=== PATIENT | female | born 1965 | race Hispanic/Latino ===

== ENCOUNTER → 2021-09-05 00:29 | Outpatient (CLI) | payer BC, SELFPAY ==
[2021-09-07 20:01] LABS: SARS-CoV-2 RNA PCR Negative
== END ==
PROVIDERS: PCP Physician Assistant; Visit Provider Physician Assistant
DX: Z20.822 Contact with and (suspected) exposure to COVID-19 (principal)
CPT/HCPCS: C9803; U0003; U0005

== ENCOUNTER 2024-02-14 12:30 | Outpatient (RCR) | payer OTHER, SELFPAY ==
--- NOTE | 2024-01-13 11:42 | OPREHPOC ---
Outpatient Therapy Plan of Care This is a Multidisciplinary Plan of Care that may contain components documented by all disciplines (PT, OT, and ST.) PT Problem 1 PT Problem #1 Knowledge Deficit PT Goal 1 Goal 1. Patient will perform independent HEP Target Visit 3 PT Problem 2 PT Problem #2 Pain PT Goal 1 Goal 1. Pt will report pain no higher than 4/10 with ADL's 2. No pain with pelvic exam Target Visit 6 PT Problem 3 PT Problem #3 Impaired Functional ADLs PT Goal 1 Goal 1. Patient will report no limitation with walking activities or sleeping Target Visit 6 PT Problem 4 PT Problem #4 Impaired Strength PT Goal 1 Goal 1. Improve hip strength to 4+/5 in all planes 2. Improve pelvic floor strength to 3/5 Target Visit 6
--- NOTE | 2024-01-13 11:42 | PTOPEVAL1 ---
Assessment and note entered by Xochilt Norwood DPT Evaluation Information Assessment Status Evaluation Subjective Information Pt reports she has had a lot of issues with BM and has to splint at times, worsening over the last 5 years. Some abdominal/pelvic pain that wraps around and sometimes affects her ability to walk and difficulty sleeping at times. Voids 3-4 times a day and 3-4 times at night. Incontinence with cough or sneeze, may occur every day but may also have times where it does not. Can hold urge variable amounts of time. Denies pain with urination. BM 3-4 times a week and reports a sense of constipation. Has noticed that fiber intake does help. Highest pain 10/10 and lowest 4/10. Pt is menopausal. Pt has had 4 vaginal deliveries and 1 . Previous tubal ligation and hysterectomy and surgery for kidney stones. Patient goal: get exercises and feel better Return to MD is not scheduled. Reported Pain Level Pain Score 4: Self Report Assessment PT Clinical Summary The patient is presenting to skilled therapy with a history of worsening pelvic/abdominal pain and reports of constipation. She presents with increased pelvic floor muscle tone and pain on palpation, decreased strength and endurance which are contributing to her pain and difficulty with walking activities. She will highly benefit from therapy to address these impairments in order to reduce pain and improve function. Plan of Care Interventions Electrical Stimulation,Gait Training,Hot Pack/Cold Pack,Manual Therapy,Neuro Re-education,Patient/ Caregiver Education,Therapeutic Activities, Therapeutic Exercise PT Services Indicated Yes Treatment Frequency and 1 time a week for 6 visits Duration These treatments will address the objective and functional deficits as defined above. The patient will be advanced safely and appropriately in order for the patient to progress towards his/her prior level of function. Additional exercises will be introduced and as well as a comprehensive home exercise program upon discharge, if needed, ?to ensure carryover of functional gains achieved in the clinic. This treatment plan has been reviewed and agreement upon by the patient.
--- NOTE | 2024-02-14 13:05 | OPREHPOC ---
Outpatient Therapy Plan of Care This is a Multidisciplinary Plan of Care that may contain components documented by all disciplines (PT, OT, and ST.) PT Problem 1 PT Problem #1 Knowledge Deficit PT Goal 1 Goal 1. Patient will perform independent HEP Target Visit 3 Progress Met PT Problem 2 PT Problem #2 Pain PT Goal 1 Goal 1. Pt will report pain no higher than 4/10 with ADL's 2. No pain with pelvic exam Target Visit 9 Progress Partially Met PT Problem 3 PT Problem #3 Impaired Functional ADLs PT Goal 1 Goal 1. Patient will report no limitation with walking activities or sleeping Target Visit 9 Progress Partially Met PT Problem 4 PT Problem #4 Impaired Strength PT Goal 1 Goal 1. Improve hip strength to 4+/5 in all planes 2. Improve pelvic floor strength to 3/5 Target Visit 9 Progress Partially Met
--- NOTE | 2024-02-14 13:05 | PTOPPROG ---
Assessment and note entered by Xochilt Norwood DPT Evaluation Information Assessment Status Progress Subjective Information Pt reports feeling better with therapy and is noticing less abdominal pain with walking. Highest pain 4/10 and lowest 1/10. Incontinence one time daily and is not needing to splint as often with BM. Assessment PT Clinical Summary The patient has made some progress in therapy and reports significantly decreased abdominal pain with ambulation. She demonstrates improved hip and pelvic floor strength and less pain with abdominal palpation. She continues to have pelvic pain and incontinence and will benefit from further therapy to address these impairments in order to reduce pain and improve function. Plan of Care Interventions Electrical Stimulation,Gait Training,Hot Pack/Cold Pack,Manual Therapy,Neuro Re-education,Patient/ Caregiver Education,Therapeutic Activities, Therapeutic Exercise PT Services Indicated Yes Treatment Frequency and 1 time every other week x 3 visits Duration These treatments will address the objective and functional deficits as defined above. The patient will be advanced safely and appropriately in order for the patient to progress towards his/her prior level of function. Additional exercises will be introduced and as well as a comprehensive home exercise program upon discharge, if needed, ?to ensure carryover of functional gains achieved in the clinic. This treatment plan has been reviewed and agreement upon by the patient.
--- NOTE | 2024-02-27 14:03 | PCPTNOTE ---
Patient rescheduled appointment 02/27/24 to 03/05/24 due to forgetting her time.
--- NOTE | 2024-03-05 14:42 | PCPTNOTE ---
Patient did not show up for appointment on 03/05/24. Called patient but unable to leave message.
--- NOTE | 2024-03-12 13:01 | PCPTNOTE ---
Patient did not show up for appointment 03/12/24.
--- NOTE | 2024-04-03 15:28 | PTOPDC ---
Assessment and note entered by Xochilt Norwood, DPT Evaluation Information Assessment Status Discharge - Pt Not Present Subjective Information - Assessment PT Clinical Summary The patient has no showed her last 3 appointments and will be discharged per attendance policy. She will need a new script to resume therapy in the future. Plan of Care PT Services Indicated No
== END 2024-04-04 07:51 | disposition home or self-care (01) ==
LOC: ANHGOSHPT 12:30
PROVIDERS: PCP Physician Assistant; Visit Provider Physician Assistant
DX: M99.05 Segmental and somatic dysfunction of pelvic region (principal)
CPT/HCPCS: 97110; 97112; 97140; 97161; 97530